=== PATIENT | male | born 1990 | race American Indian/Alaskan Native ===

== ENCOUNTER 2016-05-23 10:06 | Emergency (ER) | payer SELFPAY ==
--- NOTE | 2016-05-23 10:38 | EDM.PDOC ---
ED HPI EYE COMPLAINT - General Chief Complaint: Eye Problems Stated Complaint: INFECTION TO LEFT EYE Time Seen by Provider: 05/23/16 10:30 Source: Reports: Patient History Limitations: Reports: No limitations - History of Present Illness INITIAL COMMENTS - FREE TEXT/NARRATIVE: HISTORY AND PHYSICAL: History of present illness: [Patient comes to the emergency room complaining of right eye swelling, crusting , discomfort. Symptoms started 4-5 days ago with some mild eye irritation. Over the past 24 hours his eyelid has become swollen, red, irritated. This morning he woke up with his eye crusted shut. Eye crusts were white in color. He feels a filmy sensation over the lateral aspect of his right eye. Denies blurred vision and double vision. No sandpaper like sensation in his eye with blinking. He admits to a poking sensation in his eye from time to time with blinking. He has been ill for the past week with a cold. He feels as though he is gradually improving. He's not had fever or chills since the development of his eye symptoms. No abdominal pain, nausea, vomiting. He has no other complaints or concerns today.] Review of systems: As per history of present illness and below otherwise all systems reviewed and negative. Past medical history: As per history of present illness and as reviewed below otherwise noncontributory. Surgical history: As per history of present illness and as reviewed below otherwise noncontributory. Social history: No reported history of drug or alcohol abuse. Family history: As per history of present illness and as reviewed below otherwise noncontributory. Physical exam: HEENT: Atraumatic, normocephalic. Left eye is without erythema or swelling. Lateral right eye, upper and lower eyelids, are erythematous and swollen. White crusting present on the eyelashes. Bullous type lesions noted to the edge of his upper eyelid. Clear fluid filled. PERRLA. Conjunctival injection to outer R eye. mucous membranes moist, throat clear, neck supple, no lymphadenopathy. Lungs: Clear to auscultation, breath sounds equal bilaterally. Heart: S1S2, regular, negative for clicks, rubs, or JVD. Abdomen: Soft, nondistended, nontender. Genitourinary: Deferred. Rectal: Deferred. Extremities: Atraumatic, negative for cords or calf pain. Neurovascular unremarkable. Neuro: Awake, alert, oriented. Motor and sensory unremarkable throughout. Exam nonfocal. Impression: [blepharitis, R eye] Plan: [Start Erythromycin ophthalmic 0.5% sig: Apply to affected eye twice a day x10 days. Zero refills. Follow up with ophthamologist this week. All questions are answered and concerns are addressed.] Definitive disposition and diagnosis as appropriate pending reevaluation and review of above. - Related Data Home Meds: Ambulatory Orders Medication Instructions Recorded Confirmed . [No Known Home Meds] 05/23/16 05/23/16 Past Medical History - Past Health History Medical/Surgical History: Denies Medical/Surgical History HEENT History: Reports: None Cardiovascular History: Reports: None Respiratory History: Reports: None Gastrointestinal History: Reports: None Genitourinary History: Reports: None Musculoskeletal History: Reports: None Neurological History: Reports: None Psychiatric History: Reports: None Endocrine/Metabolic History: Reports: None Hematologic History: Reports: None Immunologic History: Reports: None Oncologic (Cancer) History: Reports: None Dermatologic History: Reports: None - Infectious Disease History Infectious Disease History: Reports: Chicken pox - Past Surgical History Head Surgeries/Procedures: Reports: None Social & Family History - Family History Family Medical History: Noncontributory - Tobacco Use Smoking Status *Q: Current Some Day Smoker Years of Tobacco use: 10 Packs/Tins Daily: 0.2 - Caffeine Use Caffeine Use: Reports: Coffee - Recreational Drug Use Recreational Drug Use: No ED ROS GENERAL - Review of Systems Review Of Systems: ROS reveals no pertinent complaints other than HPI. ED EXAM GENERAL W FULL EYE - Physical Exam Exam: See Below Course - Vital Signs Last Recorded V/S: Last Vital Signs Temp 98.4 F 05/23/16 10:25 Pulse 73 05/23/16 10:25 Resp 16 05/23/16 10:25 BP 160/84 H 05/23/16 10:25 Pulse Ox 97 05/23/16 10:25 Departure - Departure Time of Disposition: 10:55 Disposition: Home, Self-Care 01 Condition: good Clinical Impression: Blepharitis of right eye Qualifiers: Blepharitis type: unspecified type Eyelid: both upper and lower Qualified Code( s): H01.001 - Unspecified blepharitis right upper eyelid Instructions: Blepharitis, Pisu-oz-Nima Referrals: PCP,None [Primary Care Provider] - Forms: ED Department Discharge Additional Instructions: The following information is given to patients seen in the emergency department who are being discharged to home. This information is to outline your options for follow-up care. We provide all patients seen in our emergency department with a follow-up referral. The need for follow-up, as well as the timing and circumstances, are variable depending upon the specifics of your emergency department visit. If you don't have a primary care physician on staff, we will provide you with a referral. We always advise you to contact your personal physician following an emergency department visit to inform them of the circumstance of the visit and for follow-up with them and/or the need for any referrals to a consulting specialist. The emergency department will also refer you to a specialist when appropriate. This referral assures that you have the opportunity for follow-up care with a specialist. All of these measure are taken in an effort to provide you with optimal care, which includes your follow-up. Under all circumstances we always encourage you to contact your private physician who remains a resource for coordinating your care. When calling for follow-up care, please make the office aware that this follow-up is from your recent emergency room visit. If for any reason you are refused follow-up, please contact the [facility] emergency department at and asked to speak to the emergency department charge nurse. [address] [address] Call the above listed clinic tomorrow morning to schedule an ER followup. Apply antibiotics as prescribed. Apply warm moist compresses to affected eye 3- 4 times daily. Return to ER as needed as discussed.
== END 2016-05-23 11:13 | disposition home or self-care (01) ==
LOC: MW.ED 10:06
DX: H01.001 Unspecified blepharitis right upper eyelid (principal)
CPT/HCPCS: 99283